=== PATIENT | female | born 1950 | race Hispanic/Latino ===

== ENCOUNTER 2020-04-13 15:11 | Inpatient (IN) | payer MEDICARE ==
[~2020-04-13] VITALS: Ht 152.4 cm; Wt 72.6 kg
[2020-04-13 16:45] LABS: BASOPHILS % 0.9 % (0.0-1.0); EOSINOPHILS # (AUTO) 0.1 (0.0-0.4); EOSINOPHILS % 2.8 % (0.0-6.0); HEMATOCRIT 28.3 % (34.2-44.1); HEMOGLOBIN 9.1 g/dL (12.0-16.0); LYMPHOCYTES # (AUTO) 1.1 (1.0-3.2); MEAN CORPUSCULAR HGB CONC 32.2 g/dL (31-35); MEAN CORPUSCULAR VOLUME 99.6 fL (81-99); MONOCYTES # (AUTO) 0.5 (0.2-0.8); MONOCYTES % 10.3 % (4.4-11.3); NEUTROPHILS # (AUTO) 2.6 (2.1-6.9); NEUTROPHILS % 59.8 % (38.7-80.0); PLATELET COUNT 83 x10e3/uL (140-360); RED BLOOD COUNT 2.84 x10e6/uL (3.6-5.1)
[2020-04-13 16:56] LABS: INR 1.58; PROTHROMBIN TIME 19.6 seconds (11.9-14.5)
[2020-04-13 16:57] LABS: PARTIAL THROMBOPLASTIN TIME 41.1 seconds (23.8-35.5)
[2020-04-13 17:03] LABS: ALBUMIN/GLOBULIN RATIO 0.4 (0.8-2.0); ANION GAP 16.6 mmol/L (8-16); CALCIUM 7.6 mg/dL (8.4-10.2); CREATININE, SERUM 5.71 mg/dL (0.57-1.11); MAGNESIUM 1.9 MG/DL (1.3-2.1); POTASSIUM 3.6 mmol/L (3.5-5.1)
[2020-04-13 17:09] LABS: CREATINE KINASE MB 3.8 ng/mL (0-5.0)
[2020-04-13] MEDS ORDERED: DEXTROSE 50% SYRINGE 50 ML IV STA ×2 (17:10)
[2020-04-13] MEDS ORDERED: DEXTROSE 50% SYRINGE 50 ML IV ONE (17:14)
[2020-04-13] MEDS ORDERED: DEXTROSE 5% 1,000 ML IV ONE (17:45)
[2020-04-13] MEDS: CEFEPIME 2 GM/NS 0.9% 100 ML 100 ML IV SCH (18:06)
[2020-04-13] MEDS: DEXTROSE 10% 1,000 ML IV SCH (18:35)
[2020-04-13 22:00] VITALS: BP 100/59
[2020-04-14] VITALS (9 sets, daily range): BP systolic 95–138; BP diastolic 53–91
[2020-04-14 00:06] LABS: CREATINE KINASE MB 3.6 ng/mL (0-5.0)
[2020-04-14] MEDS: DEXTROSE 50% SYRINGE 50 ML IV PRN ×2 (01:02→21:58)
[2020-04-14 04:46] LABS: BASOPHILS % 1.1 % (0.0-1.0); EOSINOPHILS # (AUTO) 0.1 (0.0-0.4); EOSINOPHILS % 2.9 % (0.0-6.0); HEMATOCRIT 24.1 % (34.2-44.1); LYMPHOCYTES # (AUTO) 0.6 (1.0-3.2); LYMPHOCYTES % 22.5 % (18.0-39.1); MEAN CORPUSCULAR HEMOGLOBIN 31.6 pg (28-32); MEAN CORPUSCULAR HGB CONC 27.8 g/dL (31-35); MEAN CORPUSCULAR VOLUME 113.7 fL (81-99); MONOCYTES # (AUTO) 0.3 (0.2-0.8); MONOCYTES % 11.6 % (4.4-11.3); NEUTROPHILS # (AUTO) 1.7 (2.1-6.9); NEUTROPHILS % 61.5 % (38.7-80.0); PLATELET COUNT 61 x10e3/uL (140-360); RED BLOOD COUNT 2.12 x10e6/uL (3.6-5.1); RED CELL DISTRIBUTION WIDTH 21.1 % (11.7-14.4)
[2020-04-14 04:54] LABS: HEMOGLOBIN 6.7 g/dL (12.0-16.0)
[2020-04-14 05:10] LABS: ALANINE AMINOTRANSFERASE 32 IU/L (0-55); ALBUMIN 1.4 g/dL (3.5-5.0); ALBUMIN/GLOBULIN RATIO 0.4 (0.8-2.0); ALKALINE PHOSPHATASE 196 IU/L (40-150); ANION GAP 12.9 mmol/L (8-16); BLOOD UREA NITROGEN 52 mg/dL (7-26); BUN/CREATININE RATIO 10 (6-25); CARBON DIOXIDE 19 mmol/L (22-29); CHLORIDE 73 mmol/L (98-107); CREATININE, SERUM 5.23 mg/dL (0.57-1.11); EST GLOMERULAR FILTRATION RATE 8 ML/MIN (60-)
[2020-04-14 05:14] LABS: CALCIUM 5.5 mg/dL (8.4-10.2); POTASSIUM 2.9 mmol/L (3.5-5.1); SODIUM 102 mmol/L (136-145)
[2020-04-14] MEDS: CEFEPIME 2 GM/NS 0.9% 100 ML 100 ML IV SCH (05:56)
[2020-04-14] MEDS: DEXTROSE 10% 1,000 ML IV SCH (05:57)
[2020-04-14] MEDS ORDERED: SODIUM CHLORIDE 0.9% 250ML 250 ML IV SCH (06:30)
[2020-04-14] MEDS ORDERED: PANTOPRAZOLE 40 MG 10ML VIAL IV ONE (07:30)
[2020-04-14] MEDS ORDERED: OCTREOTIDE ACETATE 0.05 MG/ML AMP IV ONE (07:30)
[2020-04-14 08:06] LABS: ALBUMIN 1.9 g/dL (3.5-5.0); ALBUMIN/GLOBULIN RATIO 0.4 (0.8-2.0); ANION GAP 17.7 mmol/L (8-16); CALCIUM 7.1 mg/dL (8.4-10.2); CREATININE, SERUM 5.83 mg/dL (0.57-1.11); POTASSIUM 3.7 mmol/L (3.5-5.1)
[2020-04-14 08:23] LABS: CREATINE KINASE MB 4.7 ng/mL (0-5.0)
[2020-04-14] MEDS ORDERED: POTASSIUM CHLORIDE 20MEQ/100ML 200 ML IV ONE (08:30)
[2020-04-14 08:33] LABS: BASOPHILS % 0.5 % (0.0-1.0); EOSINOPHILS # (AUTO) 0.1 (0.0-0.4); EOSINOPHILS % 3.2 % (0.0-6.0); LYMPHOCYTES # (AUTO) 0.4 (1.0-3.2); LYMPHOCYTES % 21.4 % (18.0-39.1); MEAN CORPUSCULAR HEMOGLOBIN 31.8 pg (28-32); MEAN CORPUSCULAR HGB CONC 26.7 g/dL (31-35); MEAN CORPUSCULAR VOLUME 119.1 fL (81-99); MONOCYTES # (AUTO) 0.2 (0.2-0.8); NEUTROPHILS # (AUTO) 1.2 (2.1-6.9); NEUTROPHILS % 66.4 % (38.7-80.0); RED BLOOD COUNT 1.57 x10e6/uL (3.6-5.1); RED CELL DISTRIBUTION WIDTH 21.6 % (11.7-14.4)
[2020-04-14 08:41] LABS: HEMATOCRIT 18.7 % (34.2-44.1); PLATELET COUNT 43 x10e3/uL (140-360)
[2020-04-14 10:08] LABS: EOSINOPHILS % (MANUAL) 1 % (0-7); LYMPHOCYTES % (MANUAL) 12 % (19-48); MONOCYTES % (MANUAL) 9 % (3.4-9.0); NEUTROPHILS % (MANUAL) 77 % (40-74); PLATELET ESTIMATE MODERATELY DECREASED; PLATELET MORPHOLOGY COMMENT NORMAL
[2020-04-14 10:11] LABS: HYPOCHROMASIA SLIGHT; SCHISTOCYTES RARE
[2020-04-14 10:12] LABS: BURR CELLS SLIGHT; OVALOCYTES FEW; RBC MORPHOLOGY COMMENT ABNORMAL
[2020-04-14] MEDS ORDERED: SODIUM CHLORIDE 0.9% 1000ML 2,000 ML ONE (10:24)
[2020-04-14 10:26] LABS: ANISOCYTOSIS MARKED; BURR CELLS SLIGHT; EOSINOPHILS % (MANUAL) 5 % (0-7); LYMPHOCYTES % (MANUAL) 14 % (19-48); MONOCYTES % (MANUAL) 5 % (3.4-9.0); NEUTROPHILS % (MANUAL) 75 % (40-74); PLATELET ESTIMATE MODERATELY DECREASED; PLATELET MORPHOLOGY COMMENT NORMAL; TARGET CELLS FEW
[2020-04-14 10:27] LABS: OVALOCYTES FEW; RBC MORPHOLOGY COMMENT ABNORMAL
[2020-04-14] MEDS ORDERED: IOPAMIDOL 370 MG/ML 200 ML INFUS..BTL INJ ONE (11:03)
[2020-04-14] MEDS ORDERED: SODIUM CHLORIDE 0.9% 100 ML ONE (11:03)
[2020-04-14] MEDS: OCTREOTIDE ACETATE 500 MCG in SODIUM CHLORIDE 0.9% 250ML 249 ML IV SCH ×2 (11:06→18:18)
[2020-04-14] MEDS: PANTOPRAZOLE 40 MG 10ML VIAL IV SCH ×2 (11:06→18:18)
[2020-04-14] MEDS ORDERED: ACETAMINOPHEN 325 MG TAB PO PRN (14:45)
[2020-04-14] MEDS ORDERED: HYDRALAZINE HCL 20 MG/ML VIAL IV PRN (14:45)
[2020-04-14] MEDS ORDERED: TEMAZEPAM 7.5 MG CAP PO PRN (14:45)
[2020-04-14 16:04] LABS: CREATINE KINASE MB 4.4 ng/mL (0-5.0)
[2020-04-14] MEDS: CEFEPIME 1GM/NS 0.9% 50 ML 50 ML IV SCH (18:18)
[2020-04-14 18:40] LABS: HEMATOCRIT 36.7 % (34.2-44.1); HEMOGLOBIN 12.6 g/dL (12.0-16.0)
[2020-04-14] MEDS ORDERED: TEMAZEPAM 15 MG CAP PO PRN (21:00)
[2020-04-15] VITALS (7 sets, daily range): BP systolic 102–125; BP diastolic 61–90
[2020-04-15] MEDS: ONDANSETRON HCL INJ 2MG/ML 2ML 2 MG/ML VIAL IV PRN (04:05)
[2020-04-15] MEDS ORDERED: SODIUM CHLORIDE 0.9% 250ML 250 ML ONE (04:17)
[2020-04-15] MEDS: OCTREOTIDE ACETATE 500 MCG in SODIUM CHLORIDE 0.9% 250ML 249 ML IV SCH ×2 (04:21→16:18)
[2020-04-15 05:15] LABS: BASOPHILS % 0.5 % (0.0-1.0); EOSINOPHILS # (AUTO) 0.1 (0.0-0.4); EOSINOPHILS % 2.3 % (0.0-6.0); HEMATOCRIT 38.2 % (34.2-44.1); HEMOGLOBIN 13.2 g/dL (12.0-16.0); LYMPHOCYTES # (AUTO) 0.8 (1.0-3.2); MEAN CORPUSCULAR HEMOGLOBIN 31.2 pg (28-32); MEAN CORPUSCULAR HGB CONC 34.6 g/dL (31-35); MEAN CORPUSCULAR VOLUME 90.3 fL (81-99); MONOCYTES # (AUTO) 0.6 (0.2-0.8); MONOCYTES % 9.5 % (4.4-11.3); NEUTROPHILS # (AUTO) 4.2 (2.1-6.9); NEUTROPHILS % 73.2 % (38.7-80.0); PLATELET COUNT 89 x10e3/uL (140-360); RED BLOOD COUNT 4.23 x10e6/uL (3.6-5.1); RED CELL DISTRIBUTION WIDTH 20.4 % (11.7-14.4)
[2020-04-15 05:45] LABS: ALBUMIN 2.1 g/dL (3.5-5.0); ALBUMIN/GLOBULIN RATIO 0.4 (0.8-2.0); ANION GAP 17.5 mmol/L (8-16); CALCIUM 7.6 mg/dL (8.4-10.2); CHOL/HDL RATIO 5.6 (3.0-3.6); CREATININE, SERUM 3.98 mg/dL (0.57-1.11); MAGNESIUM 1.9 MG/DL (1.3-2.1); PHOSPHORUS 4.8 MG/DL (2.3-4.7); POTASSIUM 3.5 mmol/L (3.5-5.1)
[2020-04-15 06:05] LABS: THYROID STIMULATING HORMONE 60.845 uIU/mL (0.350-4.940)
[2020-04-15] MEDS ORDERED: LEVOTHYROXINE SODIUM 100 MCG/VIAL IV ONE (07:30)
[2020-04-15] MEDS ORDERED: LACTULOSE SYRUP 20 GM/30 ML UDC PO PRN (08:30)
[2020-04-15 08:45] LABS: LYMPHOCYTES % (MANUAL) 24 % (19-48); MONOCYTES % (MANUAL) 4 % (3.4-9.0); NEUTROPHILS % (MANUAL) 70 % (40-74); TEAR DROP CELLS FEW
[2020-04-15 08:46] LABS: ANISOCYTOSIS MARKED; BURR CELLS SLIGHT
[2020-04-15 08:47] LABS: OVALOCYTES FEW; PLATELET ESTIMATE SLIGHTLY DECREASED; PLATELET MORPHOLOGY COMMENT NORMAL; RBC MORPHOLOGY COMMENT ABNORMAL; SCHISTOCYTES RARE; TARGET CELLS FEW
[2020-04-15] MEDS: PANTOPRAZOLE 40 MG 10ML VIAL IV SCH ×2 (09:05→16:18)
[2020-04-15] MEDS: DEXTROSE 50% SYRINGE 50 ML IV PRN (12:50)
[2020-04-15] MEDS: LACTULOSE SYRUP 20 GM/30 ML UDC PO SCH ×3 (13:45→17:00)
[2020-04-15] MEDS: DEXTROSE 10% 1,000 ML IV SCH (14:05)
[2020-04-15] MEDS ORDERED: ALBUMIN 5% 0.05 GM/ML BTL IV ONE (15:30)
[2020-04-15] MEDS ORDERED: ALBUMIN 5% 250ML 500 ML IV ONE (16:00)
[2020-04-15 16:14] LABS: RBC,BODY FLUID 252 cells/uL; WBC,BODY FLUID 12 cells/uL
[2020-04-15 16:15] LABS: BODY FLUID APPEARANCE TURBID; BODY FLUID COLOR STRAW; BODY FLUID TYPE PERITONEAL
[2020-04-15 16:33] LABS: LYMPHOCYTES,BODY FLUID 34 %; MONO/MACROPHG,BODY FLUID 49 %; NEUTROPHILS,BODY FLUID 17 %
[2020-04-15] MEDS: CEFEPIME 1GM/NS 0.9% 50 ML 50 ML IV SCH (18:32)
[2020-04-16] VITALS (7 sets, daily range): BP systolic 128–137; BP diastolic 84–89
[2020-04-16] MEDS: OCTREOTIDE ACETATE 500 MCG in SODIUM CHLORIDE 0.9% 250ML 249 ML IV SCH ×3 (02:29→19:30)
[2020-04-16 05:43] LABS: BASOPHILS % 0.5 % (0.0-1.0); EOSINOPHILS # (AUTO) 0.1 (0.0-0.4); EOSINOPHILS % 1.2 % (0.0-6.0); HEMATOCRIT 34.9 % (34.2-44.1); LYMPHOCYTES # (AUTO) 0.6 (1.0-3.2); MEAN CORPUSCULAR HEMOGLOBIN 31.7 pg (28-32); MEAN CORPUSCULAR HGB CONC 34.4 g/dL (31-35); MEAN CORPUSCULAR VOLUME 92.3 fL (81-99); MONOCYTES # (AUTO) 0.5 (0.2-0.8); MONOCYTES % 8.3 % (4.4-11.3); NEUTROPHILS # (AUTO) 4.8 (2.1-6.9); NEUTROPHILS % 79.5 % (38.7-80.0); PLATELET COUNT 59 x10e3/uL (140-360); RED BLOOD COUNT 3.78 x10e6/uL (3.6-5.1); RED CELL DISTRIBUTION WIDTH 19.3 % (11.7-14.4)
[2020-04-16] MEDS: LEVOTHYROXINE SODIUM 50 MCG TAB PO SCH (05:49)
[2020-04-16 06:09] LABS: ALBUMIN 2.3 g/dL (3.5-5.0); ALBUMIN/GLOBULIN RATIO 0.5 (0.8-2.0); ANION GAP 43.5 mmol/L (8-16); CREATININE, SERUM 4.3 mg/dL (0.57-1.11); POTASSIUM 3.5 mmol/L (3.5-5.1)
[2020-04-16] MEDS ORDERED: PHYTONADIONE 10MG/ML 20 MG in SODIUM CHLORIDE 0.9% 100 ML IV SCH ×2 (07:00→09:00)
[2020-04-16] MEDS: DEXTROSE 10% 1,000 ML IV SCH ×2 (07:13)
[2020-04-16] MEDS: LACTULOSE SYRUP 20 GM/30 ML UDC PO SCH ×2 (09:00→17:00)
[2020-04-16] MEDS ORDERED: PHYTONADIONE 10 MG/ML AMP IV ONE ×2 (09:00)
[2020-04-16] MEDS: PANTOPRAZOLE 40 MG 10ML VIAL IV SCH ×2 (09:14→18:27)
[2020-04-16] MEDS ORDERED: HYDRALAZINE HCL 20 MG/ML VIAL IV PRN (09:45)
[2020-04-16] MEDS: DEXTROSE 50% SYRINGE 50 ML IV PRN ×2 (10:54→15:24)
[2020-04-16] MEDS: ONDANSETRON HCL INJ 2MG/ML 2ML 2 MG/ML VIAL IV PRN (10:55)
[2020-04-16] MEDS ORDERED: PHYTONADIONE 10MG/ML 20 MG in SODIUM CHLORIDE 0.9% 100 ML IV ONE (11:30)
[2020-04-16] MEDS ORDERED: PHYTONADIONE 10MG/ML 20 MG in SODIUM CHLORIDE 0.9% 50ML 50 ML IV ONE (11:30)
[2020-04-16] MEDS ORDERED: DEXTROSE 20% 500 ML IV ONE (17:00)
[2020-04-16] MEDS ORDERED: CEFTRIAXONE SOD 1 GM/NS 50 ML 100 ML IV SCH (17:45)
[2020-04-16 19:51] LABS: FREE T4 (FREE THYROXINE) 0.77 ng/dL (0.8-1.8); THYROID STIMULATING HORMONE 44.085 uIU/mL (0.350-4.940)
[2020-04-16] MEDS ORDERED: CEFTRIAXONE SOD 1 GM/NS 50 ML 50 ML IV ONE (20:45)
[2020-04-17] VITALS (7 sets, daily range): BP systolic 128–147; BP diastolic 86–97
[2020-04-17] MEDS ORDERED: DIPHENOXYLATE/ATROPINE TAB PO ONE (02:00)
[2020-04-17 05:41] LABS: BASOPHILS % 0.3 % (0.0-1.0); EOSINOPHILS # (AUTO) 0.1 (0.0-0.4); HEMOGLOBIN 11.5 g/dL (12.0-16.0); LYMPHOCYTES # (AUTO) 0.5 (1.0-3.2); LYMPHOCYTES % 7.7 % (18.0-39.1); MEAN CORPUSCULAR HEMOGLOBIN 31.3 pg (28-32); MEAN CORPUSCULAR HGB CONC 34.8 g/dL (31-35); MEAN CORPUSCULAR VOLUME 89.9 fL (81-99); MONOCYTES # (AUTO) 0.6 (0.2-0.8); MONOCYTES % 9.7 % (4.4-11.3); NEUTROPHILS # (AUTO) 4.8 (2.1-6.9); PLATELET COUNT 54 x10e3/uL (140-360); RED BLOOD COUNT 3.67 x10e6/uL (3.6-5.1); RED CELL DISTRIBUTION WIDTH 18.7 % (11.7-14.4)
[2020-04-17 06:11] LABS: INR 2.39; PROTHROMBIN TIME 27.2 seconds (11.9-14.5)
[2020-04-17 06:22] LABS: ALBUMIN 2.1 g/dL (3.5-5.0); ALBUMIN/GLOBULIN RATIO 0.5 (0.8-2.0); ANION GAP 15.4 mmol/L (8-16); CALCIUM 7.1 mg/dL (8.4-10.2); CREATININE, SERUM 3.41 mg/dL (0.57-1.11); POTASSIUM 3.4 mmol/L (3.5-5.1)
[2020-04-17] MEDS: LEVOTHYROXINE SODIUM 50 MCG TAB PO SCH (06:25)
[2020-04-17] MEDS: OCTREOTIDE ACETATE 500 MCG in SODIUM CHLORIDE 0.9% 250ML 249 ML IV SCH ×2 (08:35→17:42)
[2020-04-17] MEDS: PANTOPRAZOLE 40 MG 10ML VIAL IV SCH ×2 (08:44→17:42)
[2020-04-17] MEDS: LACTULOSE SYRUP 20 GM/30 ML UDC PO SCH ×2 (08:44→17:00)
[2020-04-17] MEDS ORDERED: DEXTROSE 20% 500 ML IV SCH (09:15)
[2020-04-17] MEDS: RIFAXIMIN 550 MG TABLET PO SCH ×2 (09:36→17:42)
[2020-04-17] MEDS ORDERED: DEXTROSE 10% 1,000 ML IV SCH (16:30)
[2020-04-17] MEDS ORDERED: AMLODIPINE BESYL5 MG PO (19:40)
[2020-04-17] MEDS ORDERED: GABAPENTIN100 MG PO (19:40)
[2020-04-17] MEDS ORDERED: CITALOPRAM HBR20 MG PO (19:40)
[2020-04-17] MEDS ORDERED: DIALYVITE 8000.8 M1 PO (19:40)
[2020-04-17] MEDS ORDERED: SODIUM BICARBO650 MG PO (19:40)
[2020-04-17] MEDS ORDERED: LOSARTAN POTAS100 MG PO (19:40)
[2020-04-17] MEDS ORDERED: CLONIDINE HCL0.1 MG PO (19:40)
[2020-04-17] MEDS ORDERED: LEVOTHYROXINE50 MCG PO (19:40)
[2020-04-17] MEDS ORDERED: ATORVASTATIN CA20 MG PO (19:40)
[2020-04-17] MEDS ORDERED: VITAMIN D250 MCG PO (19:40)
[2020-04-17] MEDS ORDERED: METOPROLOL TART50 MG PO (19:40)
[2020-04-18] VITALS (8 sets, daily range): BP systolic 117–146; BP diastolic 83–90
[2020-04-18] MEDS ORDERED: PHYTONADIONE 10 MG/ML AMP IV ONE (02:00)
[2020-04-18] MEDS ORDERED: PHYTONADIONE 10MG/ML 20 MG in SODIUM CHLORIDE 0.9% 100 ML IV ONE (02:30)
[2020-04-18] MEDS: DEXTROSE 50% SYRINGE 50 ML IV PRN ×2 (04:01→06:53)
[2020-04-18] MEDS: LEVOTHYROXINE SODIUM 50 MCG TAB PO SCH (06:05)
[2020-04-18 06:17] LABS: BASOPHILS % 0.2 % (0.0-1.0); EOSINOPHILS # (AUTO) 0.1 (0.0-0.4); EOSINOPHILS % 1.8 % (0.0-6.0); HEMATOCRIT 31.8 % (34.2-44.1); HEMOGLOBIN 11.1 g/dL (12.0-16.0); LYMPHOCYTES # (AUTO) 0.6 (1.0-3.2); MEAN CORPUSCULAR HEMOGLOBIN 31.6 pg (28-32); MEAN CORPUSCULAR HGB CONC 34.9 g/dL (31-35); MEAN CORPUSCULAR VOLUME 90.6 fL (81-99); MONOCYTES # (AUTO) 0.6 (0.2-0.8); NEUTROPHILS # (AUTO) 4.9 (2.1-6.9); NEUTROPHILS % 79.5 % (38.7-80.0); RED BLOOD COUNT 3.51 x10e6/uL (3.6-5.1); RED CELL DISTRIBUTION WIDTH 18.8 % (11.7-14.4)
[2020-04-18 06:23] LABS: PLATELET COUNT 37 x10e3/uL (140-360)
[2020-04-18] MEDS: OCTREOTIDE ACETATE 500 MCG in SODIUM CHLORIDE 0.9% 250ML 249 ML IV SCH ×3 (06:33→21:41)
[2020-04-18 06:37] LABS: ANION GAP 15.6 mmol/L (8-16); CALCIUM 7.3 mg/dL (8.4-10.2); CREATININE, SERUM 3.83 mg/dL (0.57-1.11); POTASSIUM 3.6 mmol/L (3.5-5.1)
[2020-04-18 06:39] LABS: INR 2.23; PROTHROMBIN TIME 25.8 seconds (11.9-14.5)
[2020-04-18] MEDS: DEXTROSE 20% 500 ML IV SCH (07:43)
[2020-04-18] MEDS ORDERED: ALBUTEROL SULF 0.083% NEB SOLN 3 ML NEB NEB PRN (08:00)
[2020-04-18] MEDS: PANTOPRAZOLE 40 MG 10ML VIAL IV SCH ×2 (08:51→17:28)
[2020-04-18] MEDS: RIFAXIMIN 550 MG TABLET PO SCH ×2 (08:51→17:28)
[2020-04-18] MEDS: LACTULOSE SYRUP 20 GM/30 ML UDC PO SCH ×2 (08:51→17:28)
[2020-04-18] MEDS ORDERED: ALBUTEROL/IPRATROPIUM 3 ML NEB NEB PRN (09:15)
[2020-04-18] MEDS ORDERED: SODIUM CHLORIDE 0.9% 1000ML 2,000 ML ONE (09:22)
[2020-04-18] MEDS ORDERED: CEFTRIAXONE SOD 1 GM/NS 50 ML 50 ML IV SCH (09:30)
[2020-04-18] MEDS: CEFTRIAXONE SOD 1 GM/NS 50 ML 50 ML IV SCH (14:09)
[2020-04-18 17:17] LABS: ABG HCO3 28 mmol/L (22-26); ABG PCO2 39 mmHg (35-45); ABG PH 7.46 (7.35-7.45); ABG PO2 65 mmHg (80-105); ABG TCO2 29
[2020-04-19] VITALS (8 sets, daily range): BP systolic 127–151; BP diastolic 83–94
[2020-04-19] MEDS: DEXTROSE 50% SYRINGE 50 ML IV PRN (00:23)
[2020-04-19] MEDS: DEXTROSE 20% 500 ML IV SCH ×2 (00:24→15:11)
[2020-04-19] MEDS: LEVOTHYROXINE SODIUM 50 MCG TAB PO SCH (05:51)
[2020-04-19 05:52] LABS: BASOPHILS % 0.2 % (0.0-1.0); EOSINOPHILS # (AUTO) 0.2 (0.0-0.4); EOSINOPHILS % 2.6 % (0.0-6.0); HEMATOCRIT 29.8 % (34.2-44.1); HEMOGLOBIN 10.3 g/dL (12.0-16.0); LYMPHOCYTES # (AUTO) 0.6 (1.0-3.2); LYMPHOCYTES % 9.8 % (18.0-39.1); MEAN CORPUSCULAR HEMOGLOBIN 31.3 pg (28-32); MEAN CORPUSCULAR HGB CONC 34.6 g/dL (31-35); MEAN CORPUSCULAR VOLUME 90.6 fL (81-99); MONOCYTES # (AUTO) 0.5 (0.2-0.8); NEUTROPHILS # (AUTO) 5.1 (2.1-6.9); NEUTROPHILS % 78.5 % (38.7-80.0); RED BLOOD COUNT 3.29 x10e6/uL (3.6-5.1); RED CELL DISTRIBUTION WIDTH 18.8 % (11.7-14.4)
[2020-04-19 05:55] LABS: PLATELET COUNT 55 x10e3/uL (140-360)
[2020-04-19 06:24] LABS: ALBUMIN/GLOBULIN RATIO 0.4 (0.8-2.0); ANION GAP 14.5 mmol/L (8-16); CALCIUM 7.8 mg/dL (8.4-10.2); CREATININE, SERUM 3.37 mg/dL (0.57-1.11); POTASSIUM 3.5 mmol/L (3.5-5.1)
[2020-04-19] MEDS: OCTREOTIDE ACETATE 500 MCG in SODIUM CHLORIDE 0.9% 250ML 249 ML IV SCH ×2 (07:35→16:58)
[2020-04-19] MEDS: LACTULOSE SYRUP 20 GM/30 ML UDC PO SCH ×2 (09:10→16:58)
[2020-04-19] MEDS: RIFAXIMIN 550 MG TABLET PO SCH ×2 (09:10→16:58)
[2020-04-19] MEDS: PANTOPRAZOLE 40 MG 10ML VIAL IV SCH ×2 (09:10→16:58)
[2020-04-19] MEDS: PHYTONADIONE 10 MG/ML AMP PO SCH (09:18)
[2020-04-19] MEDS: CEFTRIAXONE SOD 1 GM/NS 50 ML 50 ML IV SCH (16:58)
[2020-04-20] VITALS (7 sets, daily range): BP systolic 122–129; BP diastolic 73–93
[2020-04-20 04:17] LABS: BASOPHILS % 0.3 % (0.0-1.0); EOSINOPHILS # (AUTO) 0.2 (0.0-0.4); EOSINOPHILS % 2.8 % (0.0-6.0); HEMATOCRIT 29.7 % (34.2-44.1); HEMOGLOBIN 10.1 g/dL (12.0-16.0); LYMPHOCYTES # (AUTO) 0.5 (1.0-3.2); LYMPHOCYTES % 8.3 % (18.0-39.1); MEAN CORPUSCULAR HEMOGLOBIN 31.1 pg (28-32); MEAN CORPUSCULAR VOLUME 91.4 fL (81-99); MONOCYTES # (AUTO) 0.6 (0.2-0.8); MONOCYTES % 8.4 % (4.4-11.3); NEUTROPHILS # (AUTO) 5.2 (2.1-6.9); NEUTROPHILS % 79.9 % (38.7-80.0); RED BLOOD COUNT 3.25 x10e6/uL (3.6-5.1); RED CELL DISTRIBUTION WIDTH 18.7 % (11.7-14.4)
[2020-04-20 04:23] LABS: PLATELET COUNT 34 x10e3/uL (140-360)
[2020-04-20 04:36] LABS: ALBUMIN 1.9 g/dL (3.5-5.0); ALBUMIN/GLOBULIN RATIO 0.4 (0.8-2.0); ANION GAP 12.1 mmol/L (8-16); CALCIUM 7.9 mg/dL (8.4-10.2); CREATININE, SERUM 2.56 mg/dL (0.57-1.11); POTASSIUM 3.1 mmol/L (3.5-5.1)
[2020-04-20] MEDS: DEXTROSE 20% 500 ML IV SCH ×2 (05:58→23:17)
[2020-04-20] MEDS: OCTREOTIDE ACETATE 500 MCG in SODIUM CHLORIDE 0.9% 250ML 249 ML IV SCH ×3 (05:58→23:17)
[2020-04-20] MEDS ORDERED: LEVOTHYROXINE SODIUM 75 MCG TAB PO SCH (06:00)
[2020-04-20] MEDS: PHYTONADIONE 10 MG/ML AMP PO SCH (07:52)
[2020-04-20] MEDS: LACTULOSE SYRUP 20 GM/30 ML UDC PO SCH ×2 (08:08→18:16)
[2020-04-20] MEDS: RIFAXIMIN 550 MG TABLET PO SCH ×2 (08:08→18:16)
[2020-04-20] MEDS: PANTOPRAZOLE 40 MG 10ML VIAL IV SCH ×2 (08:08→18:16)
[2020-04-20] MEDS ORDERED: SODIUM CHLORIDE 0.9% 250ML 250 ML ONE (12:19)
[2020-04-20] MEDS: CEFTRIAXONE SOD 1 GM/NS 50 ML 50 ML IV SCH (14:59)
[2020-04-20] MEDS ORDERED: EPINEPHRINE 2.25% INH NEBU SOL 0.5 ML VIAL ONE (23:18)
[2020-04-21 03:00] VITALS: BP 139/87
[2020-04-21 05:12] LABS: BASOPHILS % 0.3 % (0.0-1.0); EOSINOPHILS # (AUTO) 0.2 (0.0-0.4); EOSINOPHILS % 2.5 % (0.0-6.0); HEMATOCRIT 28.6 % (34.2-44.1); HEMOGLOBIN 9.8 g/dL (12.0-16.0); LYMPHOCYTES # (AUTO) 0.7 (1.0-3.2); MEAN CORPUSCULAR HEMOGLOBIN 31.8 pg (28-32); MEAN CORPUSCULAR HGB CONC 34.3 g/dL (31-35); MEAN CORPUSCULAR VOLUME 92.9 fL (81-99); MONOCYTES # (AUTO) 0.6 (0.2-0.8); MONOCYTES % 9.9 % (4.4-11.3); NEUTROPHILS # (AUTO) 4.6 (2.1-6.9); NEUTROPHILS % 74.6 % (38.7-80.0); PLATELET COUNT 66 x10e3/uL (140-360); RED BLOOD COUNT 3.08 x10e6/uL (3.6-5.1); RED CELL DISTRIBUTION WIDTH 17.9 % (11.7-14.4)
[2020-04-21 05:39] LABS: ALBUMIN 1.9 g/dL (3.5-5.0); ALBUMIN/GLOBULIN RATIO 0.4 (0.8-2.0); ANION GAP 14.3 mmol/L (8-16); CALCIUM 7.9 mg/dL (8.4-10.2); CREATININE, SERUM 3.19 mg/dL (0.57-1.11); POTASSIUM 3.3 mmol/L (3.5-5.1)
[2020-04-21] MEDS ORDERED: LACTULOSE20 GM/30 M PO (06:03)
[2020-04-21] MEDS ORDERED: SYNTHROID75 MCG PO (06:03)
[2020-04-21] MEDS ORDERED: XIFAXAN550 MG PO (06:03)
[2020-04-21] MEDS ORDERED: MORPHINE SULFATE 2 MG/ML SYR 1ML IV PRN (06:30)
[2020-04-21] MEDS ORDERED: LORAZEPAM INJ 2 MG/ML VIAL IV PRN (06:30)
[2020-04-21 08:49] VITALS: BP 145/85
[2020-04-21 09:00] VITALS: BP 145/85
== END 2020-04-21 10:34 | disposition hospice, home (50) | DRG 871 ==
LOC: ER 15:43 → ERHOLD 18:32 → IMCU 21:32
PROVIDERS: ADMIT Internal Medicine; ATTEND Internal Medicine
PROC: 02HV33Z Insertion of Infusion Device into Superior Vena Cava, Percutaneous Approach (ICD-10-PCS; principal; 2020-04-14)
PROC: B548ZZA Ultrasonography of Superior Vena Cava, Guidance (ICD-10-PCS; 2020-04-14)
PROC: 5A1D70Z Performance of Urinary Filtration, Intermittent, Less than 6 Hours Per Day (ICD-10-PCS; 2020-04-14)
PROC: 30233R1 Transfusion of Nonautologous Platelets into Peripheral Vein, Percutaneous Approach (ICD-10-PCS; 2020-04-14)
PROC: 30233N1 Transfusion of Nonautologous Red Blood Cells into Peripheral Vein, Percutaneous Approach (ICD-10-PCS; 2020-04-14)
PROC: 0W9G3ZZ Drainage of Peritoneal Cavity, Percutaneous Approach (ICD-10-PCS; 2020-04-15)
PROC: 5A1D70Z Performance of Urinary Filtration, Intermittent, Less than 6 Hours Per Day (ICD-10-PCS; 2020-04-16)
PROC: 5A1D70Z Performance of Urinary Filtration, Intermittent, Less than 6 Hours Per Day (ICD-10-PCS; 2020-04-18)
PROC: 5A1D70Z Performance of Urinary Filtration, Intermittent, Less than 6 Hours Per Day (ICD-10-PCS; 2020-04-19)
DX: A41.9 Sepsis, unspecified organism (principal); G93.41 Metabolic encephalopathy; N18.6 End stage renal disease; I33.0 Acute and subacute infective endocarditis; E87.1 Hypo-osmolality and hyponatremia; D61.818 Other pancytopenia; R18.8 Other ascites; N39.0 Urinary tract infection, site not specified; K76.6 Portal hypertension; E44.0 Moderate protein-calorie malnutrition; E72.20 Disorder of urea cycle metabolism, unspecified; E87.2 Acidosis; D62 Acute posthemorrhagic anemia; I13.11 Hypertensive heart and chronic kidney disease without heart failure, with stage 5 chronic kidney disease, or end stage renal disease; Z99.2 Dependence on renal dialysis; Z91.81 History of falling; Z85.038 Personal history of other malignant neoplasm of large intestine; E16.2 Hypoglycemia, unspecified; Z82.49 Family history of ischemic heart disease and other diseases of the circulatory system; K74.60 Unspecified cirrhosis of liver; D63.8 Anemia in other chronic diseases classified elsewhere; E66.9 Obesity, unspecified; Z68.31 Body mass index [BMI] 31.0-31.9, adult; D69.6 Thrombocytopenia, unspecified; E03.9 Hypothyroidism, unspecified; D73.1 Hypersplenism; B95.4 Other streptococcus as the cause of diseases classified elsewhere; F10.21 Alcohol dependence, in remission; Z20.828 Contact with and (suspected) exposure to other viral communicable diseases
CPT/HCPCS: 36415; 36556; 36600; 49083; 70450; 71045; 72125; 72170; 74018; 74174; 74470; 76705; 76937; 77001; 80048; 80053; 80061; 82140; 82270; 82550; 82553; 82607; 82746; 82805; 82947; 82948; 83036; 83630; 83735; 84100; 84439; 84443; 84481; 84484; 84681; 85014; 85018; 85025; 85610; 85730; 86704; 86705; 86706; 86850; 86900; 86920; 87040; 87045; 87070; 87071; 87177; 87205; 87340; 89051; 90962; 93005; 93306; 94640; 99285; C1769; J0692; J0696; J2353; J2354; J2405; J3430; J7030; J7050; J7070; J7799; P9016; P9034; P9045; Q9967; U0002